=== PATIENT | female | born 1970 ===

== ENCOUNTER 2024-03-21 10:20 | Outpatient (AMB) | payer OTHER, SELFPAY ==
--- NOTE | 2024-03-21 10:23 | A.OFFVIS_ITS ---
Vital Signs 03/21/24 10:28 Height 5 ft 1 in Weight 159 lb 2.78 oz BMI 30.1 BP 134/80 Blood Pressure Location Rt brachial Position Sitting Pulse 67 Intake Visit Reasons: Diverticulitis, Malaise, Colonoscopy Intake Note: New patient in office today for colonoscopy screening. CC: Patient with hx of diverticulitis c/o gurgling noise from abdomen, a lot of gas, abdominal pain, and constipation. Last EGD/colonoscopy about 7 years ago in [place] per PT. Allergies amlodipine Allergy (Intermediate, Verified 03/21/24 15:18) Nausea atorvastatin Adverse Reaction (Intermediate, Verified 03/21/24 15:18) Myalgias rosuvastatin [From Crestor] Adverse Reaction (Intermediate, Verified 03/21/24 15:18) Myalgia HPI HPI Diverticulitis, Malaise, Colonoscopy: Details: 53-year-old female here for initial evaluation of ?diverticulitis, malaise, and colonoscopy. ? she is referred by [facility]. P.m. X JOSE MIGUEL Hypothyroid-Rayna's thyroiditis (pt denies Hashimotis) High cholesterol Hypertension Chronic idiopathic constipation Depression with anxiety/insomnia History of diverticulitis Arteriosclerotic disease Chronic sinusitis - resolved * SURGICAL HISTORY Colposcopy x 3 Myomectomy x 2 Adenoidectcomy cholecystectomy * ALLERGIES Amlodipine - nausea Crestor - mylagias Atorvastatin - myalgias * [email or web address]: none TODAY'S VISIT Her last scope was 7.5 years ago. She suffers CIC and has a lot of gas and bloating. It is uncomfortable. She has had diverticulitis twice, 7.5 and 2 years ago. She uses dulcolax but it is not predictable in its effect. She has used Linzess but this gave her diarrhea - but she does not know the dose. She drinks a lot of water and eats a lot of salads and exercises. We discussed utilizing lowest dose Linzess versus trying something different like Amitiza and because she does not like to take anything in the evening (that is when she takes her thyroid medication) she thinks she wants to start with the low-dose Linzess. She admits that she has had a lot of stress lately and this seems to worsen her bowel issues. There are no prior problems with anesthesia or sedation. She has JOSE MIGUEL and no cardiac problems except benign palpitations. No ID problems. Her father had CRC she has a brother with polyps. [facility] Surgical History H/O colonoscopy History of esophagogastroduodenoscopy (EGD) H/O adenoidectomy History of colposcopy History of cholecystectomy Family History Father Colon cancer Esophageal cancer Paternal Aunt Breast cancer Social History Alcohol intake: current Alcohol intake frequency: holidays/special occasions only Patient Tobacco Use Status: Never used Tobacco Review of Systems Const Denies fatigue, Denies fever(s), Denies night sweats, Denies poor appetite and Denies weight loss Eyes Details: glasses Reports requires corrective lenses ENT Reports Normal hearing present, Denies dental pain, Denies dysphagia, Denies hearing loss, Denies mouth pain, Denies odynophagia, Denies throat swelling, Denies tongue swelling and Reports other (Dentition adequate) Card Reports no additional complaints Resp Reports no additional complaints GI Details: Denies abdominal pain, Denies melena, Reports bloating, Denies hematochezia, Reports constipation, Denies GI cramping, Denies dysphagia, Denies excessive flatus, Denies early satiety, Denies heartburn, Denies diarrhea, Denies nausea, Denies odynophagia, Denies vomiting and Denies hematemesis Skin/Breast Denies pruritus, Denies lesions, Denies rash and Denies jaundice Neuro Reports Normal hearing present and Denies Abnormal speech present Endo Denies fatigue Aller/Immun Denies throat swelling and Denies tongue swelling Physical Exam Vital Signs: Last Vital Signs Pulse 67 03/21/24 10:28 BP 134/80 03/21/24 10:28 BMI result Body Mass Index 30.1 Const General: cooperative, no acute distress, well developed and well groomed Nutritional Appearance: well nourished and obese Orientation/consciousness: oriented to person, oriented to place and oriented to time Limitations: No language barrier HEENT Head: Yes normocephalic and Yes atraumatic Eyes General: appearance normal, both eyes and all related structures Pupils: Equal, round and reactive pupils present Neck Neck: Yes normal visual inspection and Yes no lymphadenopathy Thyroid: Thyroid normal Resp Effort & Inspection: normal respiratory effort and able to speak in complete sentences Auscultation: clear to auscultation bilaterally Cardio Rate: regular rate Rhythm: regular rhythm Heart sounds: Normal, physiologic split S2 sound present Peripheral pulses: radial pulses present and posterior tibial pulses present GI Inspection: No distended, No Abdominal panniculus present, Yes obesity and Yes striae Palpation (GI): Soft to palpation, nontender, no guarding, not rigid and No hepatosplenomegaly present Percussion: Yes normal to percussion Auscultation: normal bowel sounds Rectal Exam - Female: deferred Skin General skin exam: no rashes or lesions noted, turgor normal, skin not dry, no jaundice, No spider nevi and no striae Rashes: no rashes Nails: normal Neuro General: oriented to person, oriented to place and oriented to time Cranial nerves: Yes Equal, round and reactive pupils present and Yes Normal hearing present Speech: No Abnormal speech present Extrem General: Yes normal to inspection, No clubbing, No cyanosis and No edema Psych Appearance: grossly normal and well kempt Mental Status: mental status grossly normal Speech and movement: Normal speech and movement present Affect: normal affect Attitude: cooperative Thought process: Normal thought process present and not confabulating Thought content: Normal thought content present Insight: Fair insight present (Psych) Judgement: Fair judgement present (Psych) Assessment & Plan Assessment & Plan (1) Pre-op examination: Code(s): Z01.818 - Encounter for other preprocedural examination Category: Medical (2) Chronic idiopathic constipation: Code(s): K59.04 - Chronic idiopathic constipation Category: Medical (3) Family history of colon cancer in father: Comment: And polyps in her younger brother Code(s): Z80.0 - Family history of malignant neoplasm of digestive organs Category: Medical (4) Rayna's thyroiditis: Code(s): E06.3 - Autoimmune thyroiditis Category: Medical (5) JOSE MIGUEL (obstructive sleep apnea): Code(s): G47.33 - Obstructive sleep apnea (adult) (pediatric) Category: Medical Plan Her last scope was 7.5 years ago. She suffers CIC and has a lot of gas and bloating. It is uncomfortable. She has had diverticulitis twice, 7.5 and 2 years ago. She uses dulcolax but it is not predictable in its effect. She has used Linzess but this gave her diarrhea - but she does not know the dose. She drinks a lot of water and eats a lot of salads and exercises. We discussed utilizing lowest dose Linzess versus trying something different like Amitiza and because she does not like to take anything in the evening (that is when she takes her thyroid medication) she thinks she wants to start with the low-dose Linzess. She admits that she has had a lot of stress lately and this seems to worsen her bowel issues. There are no prior problems with anesthesia or sedation. She has JOSE MIGUEL and no cardiac problems except benign palpitations. No ID problems. Her father had CRC she has a brother with polyps. Orders: Orders Complete Blood Count Auto Diff Today E06.3 - Autoimmune thyroiditis, K59.04 - Chronic idiopathic constipation Colonoscopy - GI Use Only Today Z01.818 - Encounter for other preprocedural examination Comprehensive Met. Panel Today E06.3 - Autoimmune thyroiditis, K59.04 - Chronic idiopathic constipation TSH reflex Free T4 Today E06.3 - Autoimmune thyroiditis, K59.04 - Chronic idiopathic constipation Medications: New linaclotide (Linzess) 72 mcg PO QAM 30 caps 3RF K59.04 - Chronic idiopathic co nstipation peg 3350-electrolytes 236-22.74-6.74 -5.86 gram (Golytely) until fecal effluent is clear; do not exceed a total volume of 2,000 mL 240 mL PO Q10M 1 day 4,000 mL 0RF Z12.11 - Encounter for screening for malignant neoplasm of colon bisacodyl (Dulcolax (bisacodyl)) 10 mg (2 x 5 mg) PO BEDTIME 2 days 4 tabs 0RF Coding Level of Care Code New Pt Level 3 (84676) Diagnoses Pre-op examination Z01.818 Chronic idiopathic constipation K59.04 Family history of colon cancer in father Z80.0 Rayna's thyroiditis E06.3 JOSE MIGUEL (obstructive sleep apnea) G47.33
[2024-03-21 10:28] VITALS: BP 134/80; PULSE 67; BMI 30.1
== END 2024-03-21 11:05 | disposition home or self-care (01) ==
PROVIDERS: PCP Specialist; Visit Provider Nurse Practitioner
DX: Z01.818 Encounter for other preprocedural examination (principal); K59.04 Chronic idiopathic constipation; Z80.0 Family history of malignant neoplasm of digestive organs; E06.3 Autoimmune thyroiditis; G47.33 Obstructive sleep apnea (adult) (pediatric)
CPT/HCPCS: S0285

== ENCOUNTER → 2024-03-21 10:20 | Outpatient (BNVA) | payer SELFPAY | PROVIDERS: PCP Specialist; Visit Provider Nurse Practitioner ==

== ENCOUNTER 2024-05-09 07:43 | Outpatient (REF) | payer OTHER, SELFPAY ==
[2024-05-09 08:00] LABS: MANUAL DIFF FLAG NO
[2024-05-09 08:14] LABS: Basophils Absolute Auto 0.1 X10*3/uL (0.0-0.2); Basophils Percent Auto 0.9 % (0-2); Eosinophils Absolute Auto 0.2 X10*3/uL (0.0-0.4); Eosinophils Percent Auto 3.3 % (0-4); Hematocrit 41.6 % (37.0-47.0); Hemoglobin 14.2 g/dl (12.0-16.0); Imm Gran Abs Auto 0.03 X10*3/uL (0.00-0.03); Imm Gran Pct Auto 0.5 % (0.0-0.4); Lymphocytes Absolute Auto 2.1 X10*3/uL (1.2-4.9); Lymphocytes Percent Auto 31.1 % (20-40); Mean Corpuscular HGB Conc 34.1 g/dl (31.0-35.0); Mean Corpuscular Hemoglobin 29.1 pg (27.0-33.0); Mean Corpuscular Volume 85.2 fL (80.0-98.0); Mean Platelet Volume 9.9 fL (9.4-12.3); Monocytes Absolute Auto 0.5 X10*3/uL (0.1-1.2); Neutrophils Absolute Auto 3.8 x10*3/uL (2.0-8.3); Neutrophils Percent Auto 57.2 % (45-73); Platelet Count 260 X10*3/uL (160-400); Red Blood Count 4.88 X10*6/uL (4.20-5.50); Red Cell Distribution Width 13.8 % (11.0-16.0); White Blood Count 6.6 X10*3/uL (4.8-10.8)
[2024-05-09 08:59] LABS: Alanine Aminotransferase 12 U/L (0-31); Albumin Level 4.4 g/dL (3.5-5.0); Alkaline Phosphatase 59 U/L (39-117); Anion Gap 16 (12-20); Aspartate Amino Transferase 14 U/L (5-31); Bilirubin Total 0.4 mg/dL (0.0-1.0); Blood Urea Nitrogen 9 mg/dL (9-16); Calcium 10.1 mg/dL (8.4-10.2); Carbon Dioxide 23 mmol/L (22-29); Chloride 105 mmol/L (96-108); Estimated Glomerular Filt Rate > 60; Glucose Random 97 mg/dL (60-115); Potassium 3.9 mmol/L (3.3-5.1); Sodium 140 mmol/L (135-145); Total Protein 7.5 g/dL (6.5-8.0)
[2024-05-09 09:01] LABS: TSH reflex Free T4 1.79 uIU/mL (0.32-4.0)
== END 2024-05-09 07:44 | disposition home or self-care (01) ==
LOC: HO.LAB 07:43
PROVIDERS: PCP Physician Assistant Medical; Visit Provider Nurse Practitioner
DX: K59.04 Chronic idiopathic constipation (principal); E06.3 Autoimmune thyroiditis
CPT/HCPCS: 36415; 80053; 84443; 85025

== ENCOUNTER 2024-05-12 08:50 | Outpatient (AMB) | payer OTHER, SELFPAY ==
--- NOTE | 2024-05-12 08:58 | A.OFFVIS_ITS ---
Vital Signs 05/12/24 09:15 Height 5 ft 1 in Weight 159 lb 9.835 oz BMI 30.2 Blood Pressure Location Rt brachial Position Sitting Intake Visit Reasons: F/u titrate Linzess Intake Note: Patient in office today in follow up of abdominal pain and constipation. CC:Patient reports that she is taking the Linzess but continues having hard stools and then after taking the Linzess liquid comes out like bile . She continues having constipation, abdominal pain, abdominal bloating, and gas. 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[employer] Operator Required: No Accompanied by: Self / Same As Patient Allergies amlodipine Allergy (Intermediate, Verified 05/12/24 09:21) Nausea atorvastatin Adverse Reaction (Intermediate, Verified 05/12/24 09:21) Myalgias rosuvastatin [From Crestor] Adverse Reaction (Intermediate, Verified 05/12/24 09:21) Myalgia HPI HPI F/u titrate Linzess: Details: Assessment & Plan (1) Pre-op examination: Code(s): Z01.818 - Encounter for other preprocedural examination Category: Medical (2) Chronic idiopathic constipation: Code(s): K59.04 - Chronic idiopathic constipation Category: Medical (3) Family history of colon cancer in father: Comment: And polyps in her younger brother Code(s): Z80.0 - Family history of malignant neoplasm of digestive organs Category: Medical (4) Rayna's thyroiditis: Code(s): E06.3 - Autoimmune thyroiditis Category: Medical (5) JOSE MIGUEL (obstructive sleep apnea): Code(s): G47.33 - Obstructive sleep apnea (adult) (pediatric) Category: Medical Plan Her last scope was 7.5 years ago. She suffers CIC and has a lot of gas and bloating. It is uncomfortable. She has had diverticulitis twice, 7.5 and 2 years ago. She uses dulcolax but it is not predictable in its effect. She has used Linzess but this gave her diarrhea - but she does not know the dose. She drinks a lot of water and eats a lot of salads and exercises. We discussed utilizing lowest dose Linzess versus trying something different like Amitiza and because she does not like to take anything in the evening (that is when she takes her thyroid medication) she thinks she wants to start with the low-dose Linzess. She admits that she has had a lot of stress lately and this seems to worsen her bowel issues. There are no prior problems with anesthesia or sedation. She has JOSE MIGUEL and no cardiac problems except benign palpitations. No ID problems. Her father had CRC she has a brother with polyps. Orders: Orders Complete Blood Count Auto Diff Today E06.3 - Autoimmune thyroiditis, K59.04 - Chronic idiopathic constipation Colonoscopy - GI Use Only Today Z01.818 - Encounter for other preprocedural examination Comprehensive Met. Panel Today E06.3 - Autoimmune thyroiditis, K59.04 - Chronic idiopathic constipation TSH reflex Free T4 Today E06.3 - Autoimmune thyroiditis, K59.04 - Chronic idiopathic constipation Medications: New linaclotide (Linzess) 72 mcg PO QAM 30 caps 3RF K59.04 - Chronic idiopathic constipation peg 3350-electrolytes 236-22.74-6.74 -5.86 gram (Golytely) until fecal effluent is clear; do not exceed a total volume of 2,000 mL 240 mL PO Q10M 1 day 4,000 mL 0RF Z12.11 - Encounter for screening for malignant neoplasm of colon bisacodyl (Dulcolax (bisacodyl)) 10 mg (2 x 5 mg) PO BEDTIME 2 days 4 tabs 0RF LABS: Laboratory Tests 05/09/24 07:58 WBC 6.6 Hgb 14.2 Hct 41.6 Plt Count 260 Estimated GFR > 60 Total Bilirubin 0.4 AST 14 ALT 12 Alkaline Phosphatase 59 TSH 1.79 COLONOSCOPY Scheduled for 09/07/2024 BIOPSY TODAY'S VISIT AT Linzess 72mcg she still will not move her bowels but every 4 days, the stool is very hard and she has to strain. She has a lot of borborygmus. Will increase to 145mcg and continue to titrate. She works 2 jobs and many 12 hour shifts so we will continue carefully. ROV 4 weeks. PFSH Medical History Pre-op examination Surgical History H/O myomectomy H/O colonoscopy History of esophagogastroduodenoscopy (EGD) H/O adenoidectomy History of colposcopy History of cholecystectomy Family History Father Colon cancer Esophageal cancer Paternal Aunt Breast cancer Social History Alcohol intake: current Alcohol intake frequency: holidays/special occasions only Patient Tobacco Use Status: Never used Tobacco Review of Systems Const Denies fatigue, Denies fever(s), Denies night sweats, Denies poor appetite and Denies weight loss Eyes Details: glasses Reports requires corrective lenses ENT Reports Normal hearing present, Denies dental pain, Denies dysphagia, Denies hearing loss, Denies mouth pain, Denies odynophagia, Denies throat swelling, Denies tongue swelling and Reports other (Dentition adequate) Card Reports no additional complaints Resp Reports no additional complaints GI Details: Denies abdominal pain, Denies melena, Denies bloating, Denies hematochezia, Reports constipation, Denies GI cramping, Denies dysphagia, Denies excessive flatus, Denies early satiety, Denies heartburn, Denies diarrhea, Denies nausea, Denies odynophagia, Denies vomiting and Denies hematemesis Skin/Breast Denies pruritus, Denies lesions, Denies rash and Denies jaundice Neuro Reports Normal hearing present and Denies Abnormal speech present Endo Denies fatigue Aller/Immun Denies throat swelling and Denies tongue swelling Physical Exam Vital Signs: BMI result Body Mass Index 30.2 Const General: cooperative, no acute distress, well developed and well groomed Nutritional Appearance: well nourished and obese Orientation/consciousness: oriented to person, oriented to place and oriented to time Limitations: No language barrier HEENT Head: Yes normocephalic and Yes atraumatic Eyes General: appearance normal, both eyes and all related structures Pupils: Equal, round and reactive pupils present Neck Neck: Yes normal visual inspection and Yes no lymphadenopathy Thyroid: Thyroid normal Resp Effort & Inspection: normal respiratory effort and able to speak in complete sentences Auscultation: clear to auscultation bilaterally Cardio Rate: regular rate Rhythm: regular rhythm Heart sounds: Normal, physiologic split S2 sound present Peripheral pulses: radial pulses present and posterior tibial pulses present GI Inspection: No distended, No Abdominal panniculus present and Yes obesity Palpation (GI): Soft to palpation, nontender, no guarding, not rigid and No h epatosplenomegaly present Percussion: Yes normal to percussion Auscultation: normal bowel sounds Rectal Exam - Female: deferred Skin General skin exam: no rashes or lesions noted, turgor normal, skin not dry, no jaundice, No spider nevi and no striae Rashes: no rashes Nails: normal Neuro General: oriented to person, oriented to place and oriented to time Cranial nerves: Yes Equal, round and reactive pupils present and Yes Normal hearing present Speech: No Abnormal speech present Extrem General: Yes normal to inspection, No clubbing, No cyanosis and No edema Psych Appearance: grossly normal and well kempt Mental Status: mental status grossly normal Speech and movement: Normal speech and movement present Affect: normal affect Attitude: cooperative Thought process: Normal thought process present and not confabulating Thought content: Normal thought content present Insight: Fair insight present (Psych) Judgement: Fair judgement present (Psych) Assessment & Plan Assessment & Plan (1) Chronic idiopathic constipation: Code(s): K59.04 - Chronic idiopathic constipation Category: Medical (2) Family history of colon cancer in father: Comment: And polyps in her younger brother Code(s): Z80.0 - Family history of malignant neoplasm of digestive organs Category: Medical Plan AT Linzess 72mcg she still will not move her bowels but every 4 days, the stool is very hard and she has to strain. She has a lot of borborygmus. Will increase to 145mcg and continue to titrate. She works 2 jobs and many 12 hour shifts so we will continue carefully. ROV 4 weeks COLONOSCOPY Scheduled for 09/07/2024 BIOPSY Medications: New linaclotide (Linzess) Take first thing in the morning with a full glass of water. 145 mcg PO QAM 30 caps 6RF K58.1 - Irritable bowel syndrome with constipation Discontinued linaclotide Discontinued Reason: Doctor's Order 72 mcg PO QAM 30 caps 3RF K59.04 - Chronic idiopathic constipation Coding Level of Care Code Est Pt Level 3 (13751) Diagnoses Chronic idiopathic constipation K59.04 Family history of colon cancer in father Z80.0
[2024-05-12 09:15] VITALS: BMI 30.2
== END 2024-05-12 09:35 | disposition home or self-care (01) ==
PROVIDERS: PCP Specialist; Visit Provider Nurse Practitioner
DX: K59.04 Chronic idiopathic constipation (principal); Z80.0 Family history of malignant neoplasm of digestive organs
CPT/HCPCS: 99213

== ENCOUNTER → 2024-05-12 08:50 | Outpatient (BNVA) | payer OTHER, SELFPAY | PROVIDERS: PCP Specialist; Visit Provider Nurse Practitioner ==

== ENCOUNTER 2024-08-09 10:29 | Outpatient (AMB) | payer OTHER, SELFPAY ==
[2024-08-09 10:32] VITALS: BP 137/69; PULSE 59; BMI 29.4
--- NOTE | 2024-08-09 10:32 | A.OFFVIS_ITS ---
Vital Signs 08/09/24 10:32 Height 5 ft 1 in Weight 155 lb 10.342 oz BMI 29.4 BP 137/69 Blood Pressure Location Lt brachial Position Sitting Pulse 59 Intake Visit Reasons: 1 mos FUV Intake Note: Patient in office today in follow up of CIC. CC: Patient reports doing much much better and having regular BMs with Linzess. Denies having other GI symptoms today. Pocket Stitcher Required: No Accompanied by: Self / Same As Patient Allergies amlodipine Allergy (Intermediate, Verified 08/09/24 10:45) Nausea atorvastatin Adverse Reaction (Intermediate, Verified 08/09/24 10:45) Myalgias rosuvastatin [From Crestor] Adverse Reaction (Intermediate, Verified 08/09/24 10:45) Myalgia HPI HPI 1 mos FUV: Details: AT Linzess 72mcg she still will not move her bowels but every 4 days, the stool is very hard adn she has to strain. She has a lto of borborygmus. Will increase to 145mcg and continue to titrate. SHe works 2 jobs and many 12 hour shifts so we will continue carefully. ROV 4 weeks. Assessment & Plan (1) Chronic idiopathic constipation: Code(s): K59.04 - Chronic idiopathic constipation Category: Medical (2) Family history of colon cancer in father: Comment: And polyps in her younger brother Code(s): Z80.0 - Family history of malignant neoplasm of digestive organs Category: Medical Medications: New linaclotide (Linzess) Take first thing in the morning with a full glass of water. 145 mcg PO QAM 30 caps 6RF K58.1 - Irritable bowel syndrome with constipation Discontinued linaclotide (Linzess) Discontinued Reason: Doctor's Order 72 mcg PO QAM 30 caps 3RF K59.04 - Chronic idiopathic constipation COLONOSCOPY 09/07/2024 BIOPSY TODAY'S VISIT She is doing well on her Linzess 145mcg and this has resolved her LLQ cramping/pain and the bloating. Its not perfect, but she is greatly improved and is happy with her GI procedure. She has an appt with me in September so we will keep this as a follow up. [facility] Medical History Pre-op examination Surgical History H/O myomectomy H/O colonoscopy History of esophagogastroduodenoscopy (EGD) H/O adenoidectomy History of colposcopy History of cholecystectomy Family History Father Colon cancer Esophageal cancer Paternal Aunt Breast cancer Social History Alcohol intake: current Alcohol intake frequency: holidays/special occasions only Patient Tobacco Use Status: Never used Tobacco Review of Systems Const Denies fatigue, Denies fever(s), Denies night sweats, Denies poor appetite and Denies weight loss Eyes Details: glasses Reports requires corrective lenses ENT Reports Normal hearing present, Denies dental pain, Denies dysphagia, Denies hearing loss, Denies mouth pain, Denies odynophagia, Denies throat swelling, Denies tongue swelling and Reports other (Dentition adequate) Card Reports no additional complaints Resp Reports no additional complaints GI Details: Denies abdominal pain, Denies melena, Reports bloating, Denies hematochezia, Reports constipation, Reports GI cramping, Denies dysphagia, Denies excessive flatus, Denies early satiety, Denies heartburn, Denies diarrhea, Denies nausea, Denies odynophagia, Denies vomiting and Denies hematemesis Skin/Breast Denies pruritus, Denies lesions, Denies rash and Denies jaundice Neuro Reports Normal hearing present and Denies Abnormal speech present Endo Denies fatigue Aller/Immun Denies throat swelling and Denies tongue swelling Physical Exam Vital Signs: Last Vital Signs Pulse 59 08/09/24 10:32 BP 137/69 08/09/24 10:32 BMI result Body Mass Index 29.4 Const General: cooperative, no acute distress, well developed and well groomed Nutritional Appearance: well nourished and overweight Orientation/consciousness: oriented to person, oriented to place and oriented to time Limitations: No language barrier HEENT Head: Yes normocephalic and Yes atraumatic Eyes General: appearance normal, both eyes and all related structures Pupils: Equal, round and reactive pupils present Neck Neck: Yes normal visual inspection and Yes no lymphadenopathy Thyroid: Thyroid normal Resp Effort & Inspection: normal respiratory effort and able to speak in complete sentences Auscultation: clear to auscultation bilaterally Cardio Rate: regular rate Rhythm: regular rhythm Heart sounds: Normal, physiologic split S2 sound present Peripheral pulses: radial pulses present and posterior tibial pulses present GI Inspection: No distended, No Abdominal panniculus present and Yes obesity Palpation (GI): Soft to palpation, nontender, no guarding, not rigid and No hepatosplenomegaly present Percussion: Yes normal to percussion Auscultation: normal bowel sounds Rectal Exam - Female: deferred Skin General skin exam: no rashes or lesions noted, turgor normal, skin not dry, no jaundice, No spider nevi and no striae Rashes: no rashes Nails: normal Neuro General: oriented to person, oriented to place and oriented to time Cranial nerves: Yes Equal, round and reactive pupils present and Yes Normal hearing present Speech: No Abnormal speech present Extrem General: Yes normal to inspection, No clubbing, No cyanosis and No edema Psych Appearance: grossly normal and well kempt Mental Status: mental status grossly normal Speech and movement: Normal speech and movement present Affect: normal affect Attitude: cooperative Thought process: Normal thought process present and not confabulating Thought content: Normal thought content present Insight: Fair insight present (Psych) Judgement: Fair judgement present (Psych) Assessment & Plan Assessment & Plan (1) Chronic idiopathic constipation: Code(s): K59.04 - Chronic idiopathic constipation Category: Medical (2) Family history of colon cancer in father: Comment: And polyps in her younger brother Code(s): Z80.0 - Family history of malignant neoplasm of digestive organs Category: Medical Plan She is doing well on her Linzess 145mcg and this has resolved her LLQ cramping/pain and the bloating. Its not perfect, but she is greatly improved and is happy with her GI procedure. She has an appt with me in September so we will keep this as a follow up. COLONOSCOPY 09/07/2024 BIOPSY Medications: Refilled linaclotide (Linzess) Take first thing in the morning with a full glass of water. 145 mcg PO QAM 30 caps 6RF K58.1 - Irritable bowel syndrome with constipation Coding Level of Care Code Est Pt Level 3 (45850) Diagnoses Chronic idiopathic constipation K59.04 Family history of colon cancer in father Z80.0
== END 2024-08-09 10:56 | disposition home or self-care (01) ==
PROVIDERS: PCP Specialist; Visit Provider Nurse Practitioner
DX: K59.04 Chronic idiopathic constipation (principal); Z80.0 Family history of malignant neoplasm of digestive organs
CPT/HCPCS: 99213

== ENCOUNTER → 2024-08-09 10:29 | Outpatient (BNVA) | payer OTHER, SELFPAY | PROVIDERS: PCP Specialist; Visit Provider Nurse Practitioner ==

== ENCOUNTER 2024-09-07 06:22 | Day surgery (SDC) | payer OTHER, SELFPAY ==
[2024-09-05 14:03] VITALS: BMI 30.6
--- NOTE | 2024-09-06 10:06 | P.CONAN_ITS ---
Documented by User: Heather Olsen NP 09/06/24 10:08 HPI - Anesthesia Eval Consult details Narrative: 54yo F for Colonoscopy PMFSH Active Problems Active Problems: All Active Problems Family history of colon cancer in father (Acute) Increased prolactin level (Acute) Chronic sinusitis (Acute) Atherosclerotic cardiovascular disease (Acute) History of diverticulitis (Acute) Insomnia (Acute) Depression with anxiety (Acute) Chronic idiopathic constipation (Acute) Hypertension (Acute) High cholesterol (Acute) Rayna's thyroiditis (Acute) Hypothyroid (Acute) JOSE MIGUEL (obstructive sleep apnea) (Acute) Past Medical History Medical History Chronic sinusitis Depression with anxiety Rayna's thyroiditis Hypothyroid High cholesterol Atherosclerotic cardiovascular disease Hypertension JOSE MIGUEL (obstructive sleep apnea) Pre-op examination Family History Family History Father Colon cancer Esophageal cancer Paternal Aunt Breast cancer Surgical History Surgical History H/O myomectomy H/O colonoscopy History of esophagogastroduodenoscopy (EGD) H/O adenoidectomy History of colposcopy History of cholecystectomy Social History Social History Are you a primary career development manager to a significant other at home: No Do you presently have visiting nurse or other home services: No Alcohol intake: current Alcohol intake frequency: holidays/special occasions only Patient Tobacco Use Status: Never used Tobacco Have you been hit, kicked, punched, or otherwise hurt by someone within the past year? If so, by whom?: No Are you DNR?: No Advance Directives: No Advance Directives Information Provided: Yes Recently lost weight without trying: No Nutrition Risks: No Nutritional Risk FDLMP: 3 weeks ago Meds Allergies Allergy/AdvReac Type Severity Reaction Status Date / Time amlodipine Allergy Intermediate Nausea Verified 09/07/24 06:46 atorvastatin AdvReac Intermediate Myalgias Verified 09/07/24 06:46 rosuvastatin [From Crestor] AdvReac Intermediate Myalgia Verified 09/07/24 06:46 Home Medications ?Medication ?Instructions ?Recorded ?Confirmed ?Last Taken ?Type cabergoline 0.5 mg tablet 0.5 mg PO .every week 03/21/24 09/07/24 09/04/24 History ezetimibe 10 mg tablet 10 mg PO DAILY 03/21/24 09/07/24 Unknown History levothyroxine 75 mcg tablet 75 mcg PO DAILY 03/21/24 09/07/24 Unknown History lorazepam 0.5 mg tablet 0.5 mg PO DAILY 03/21/24 09/07/24 Unknown History zolpidem 12.5 mg tablet,extended 12.5 mg PO BEDTIME PRN Insomnia 03/21/24 09/07/24 Unknown History release,multiphase elderberry fruit 350 mg capsule 350 mg PO DAILY 08/09/24 09/07/24 Unknown History liothyronine 5 mcg tablet 2.5 mcg PO DAILY 08/09/24 09/07/24 Unknown History magnesium 150 mg PO DAILY 08/09/24 09/07/24 Unknown History nebivolol 10 mg tablet 10 mg PO DAILY 08/09/24 09/07/24 Unknown History evolocumab 140 mg/mL subcutaneous mg subcut 09/07/24 09/07/24 08/24/24 History pen injector (Mounika Borjas) Exam Height,Weight and Vital Signs: Height 5 ft 1 in Weight 73.482 kg Assessment and Plan Assessment Anesthesia Assessment: Chart Reviewed Documented by User: Edwardo Lucas MD 09/07/24 07:50 [facility] Past Medical History Medical History Chronic sinusitis Depression with anxiety Rayna's thyroiditis Hypothyroid High cholesterol Atherosclerotic cardiovascular disease Hypertension JOSE MIGUEL (obstructive sleep apnea) Pre-op examination Family History Family History Father Colon cancer Esophageal cancer Paternal Aunt Breast cancer Family history of problems with anesthesia: No Surgical History Surgical History H/O myomectomy H/O colonoscopy History of esophagogastroduodenoscopy (EGD) H/O adenoidectomy History of colposcopy History of cholecystectomy History of Problems with Anesthesia: No Social History Social History Are you a primary career development manager to a significant other at home: No Do you presently have visiting nurse or other home services: No Alcohol intake: current Alcohol intake frequency: holidays/special occasions only Patient Tobacco Use Status: Never used Tobacco Have you been hit, kicked, punched, or otherwise hurt by someone within the past year? If so, by whom?: No Are you DNR?: No Advance Directives: No Advance Directives Information Provided: Yes Recently lost weight without trying: No Nutrition Risks: No Nutritional Risk FDLMP: 3 weeks ago Meds Allergies Allergy/AdvReac Type Severity Reaction Status Date / Time amlodipine Allergy Intermediate Nausea Verified 09/07/24 06:46 atorvastatin AdvReac Intermediate Myalgias Verified 09/07/24 06:46 rosuvastatin [From Crestor] AdvReac Intermediate Myalgia Verified 09/07/24 06:46 Home Medications ?Medication ?Instructions ?Recorded ?Confirmed ?Last Taken ?Type cabergoline 0.5 mg tablet 0.5 mg PO .every week 03/21/24 09/07/24 09/04/24 History ezetimibe 10 mg tablet 10 mg PO DAILY 03/21/24 09/07/24 Unknown History levothyroxine 75 mcg tablet 75 mcg PO DAILY 03/21/24 09/07/24 Unknown History lorazepam 0.5 mg tablet 0.5 mg PO DAILY 03/21/24 09/07/24 Unknown History zolpidem 12.5 mg tablet,extended 12.5 mg PO BEDTIME PRN Insomnia 03/21/24 09/07/24 Unknown History release,multiphase elderberry fruit 350 mg capsule 350 mg PO DAILY 08/09/24 09/07/24 Unknown History liothyronine 5 mcg tablet 2.5 mcg PO DAILY 08/09/24 09/07/24 Unknown History magnesium 150 mg PO DAILY 08/09/24 09/07/24 Unknown History nebivolol 10 mg tablet 10 mg PO DAILY 08/09/24 09/07/24 Unknown History evolocumab 140 mg/mL subcutaneous mg subcut 09/07/24 09/07/24 08/24/24 History pen injector (Mounika Borjas) Exam Airway Mallampati Class: I TM Dist: >3cm Neck ROM: Full Loose/Missing/Broken Teeth: No Heart: ok Lungs: ok Assessment and Plan Assessment Anesthesia Assessment: Anesthesia Plan Discussed Final Anesthetic Review Family History of Problems with Anesthesia: No History of Problems with Anesthesia: No NPO: Yes ASA Class: III Final Preanesthetic Review: No Changes in Pt Med Stat, Meds/Allgs Chart Reviewed, Consent Obtained/Reviewed and Anes Risks/Benef Reviewed Patient Risk: Intermediate Procedure Risk: Low Anesthetic Plan Anesthetic Plan: MAC: and Agree w/ Assess. and Plan Disposition: Standard PACU
--- NOTE | 2024-09-07 06:41 | P.HPSUR_ITS ---
Pre-Procedural Eval Section A - 24 Hr Update-Section A only Date of Service: 09/07/24 Section B - Complete if H&P > 30 days Chief Complaint: screening Relevant Family History (Specify if Yes): Yes Relevant Social History: None Present Medications: see Short Stay Collaborative assessment Medical History: Significant History (Chronic sinusitis Depression with anxiety Rayna's thyroiditis Hypothyroid High cholesterol Atherosclerotic cardiovascular disease Hypertension JOSE MIGUEL (obstructive sleep apnea)) History of Previous Operations: Relevant previous surgery/procedure and date(s) (H/O myomectomy H/O colonoscopy History of esophagogastroduodenoscopy (EGD) H/O adenoidectomy History of colposcopy History of cholecystectomy) Allergies: Allergies Allergy/AdvReac Type Severity Reaction Status Date / Time amlodipine Allergy Intermediate Nausea Verified 08/09/24 10:45 atorvastatin AdvReac Intermediate Myalgias Verified 08/09/24 10:45 rosuvastatin [From Crestor] AdvReac Intermediate Myalgia Verified 08/09/24 10:45 Review of Systems Sugical H&P ROS: Negative: Constitution, Cardiovascular, Respiratory, Neurological, Psychiatric, Hem-Onc, Allergic/Immunologic, Gastrointestinal, Genitourinary, Musculoskeletal, Integumentary, Endocrine and Eyes/Ears/Nos e/Throat Exam Surgical H&P Exam: Normal: HEENT, Normal: Heart, Normal: Lungs, Normal: Extremities, Normal: Abdomen, Normal: Skin and Normal: Neurological Plan Diagnosis/Plan: Unchanged I have reviewed the history and physical and performed a pertinent physical examination on my patient. No changes have occurred unless specified. Time Spent With Patient Time: Total time managing care of this patient today ____ minutes.
--- NOTE | 2024-09-07 06:44 | PC.NURSE ---
patient reports that she has had two small periods this year, urine hcg completed since it has not been one full year without a menstrual cycle.
[2024-09-07 06:45] VITALS: BMI 29.7
[2024-09-07] MEDS: Lactated Ringers 1,000 ML 100 ML IVCONT (06:48)
[2024-09-07 06:57] VITALS: BP 123/63; PULSE 69; RESP 18; TEMP 36.6; O2SAT 99
[2024-09-07 07:11] LABS: UPreg QC Valid YES; Urine Pregnancy NEGATIVE (NEGATIVE)
--- NOTE | 2024-09-07 08:02 | P.OPN-COLO_ITS ---
Colonoscopy Operative Note Operative Note Date of Service: 09/07/24 Narrative: Operative Information Procedure Description: Colonoscopy Indication: screening, FH of CRC Anesthesia: MAC COLONOSCOPY Instrument: Olympus variable stiffness pediatric scope 190L Colonoscopy Monitoring: Vital signs and clinical assessment, continuous EKG monitoring, Pulse oximetry, Carbon Dioxide monitoring and blood pressure monitoring were done throughout the procedure. Colon withdrawal time was 11 minutes. Procedure: The patient was placed in the left lateral decubitis position and pre-procedure medications were administered. After a digital rectal examination of the ano-rectum, the video colonoscope was inserted into the rectum and advanced through the colon to the cecum/TI. The colonoscope was slowly withdrawn in a retrograde panoramic fashion and the colon mucosa was carefully examined including a retroflexed view of the rectum. Findings and interventions are described below. Procedure Difficulty: moderate Findings: Terminal Ileum-normal Cecum:normal Ascending Colon: moderate diverticulosis Transverse Colon -normal Descending Colon: moderate diverticulosis Sigmoid Colon: severe diverticulosis Rectum: Retroflexion with small internal hemorrhoids seen, grade I Anorectum - normal Intervention: none Colon preparation: [place] Bowel Preparation Scale Right colon; 2 Transverse colon: 2 Left colon; 2 (0 = Unprepared colon segment with mucosa not seen due to solid stool that cannot be cleared. 1 = Portion of mucosa of the colon segment seen, but other areas of the colon segment not well seen due to staining, residual stool and/or opaque liquid. 2 = Minor amount of residual staining, small fragments of stool and/or opaque liquid, but mucosa of colon segment seen well. 3 = Entire mucosa of colon segment seen well with no residual staining, small fragments of stool or opaque liquid) Impression and Post Procedure Diagnosis: diverticulosis internal hemorrhoids Plan: High fiber diet leaflet Avoid straining at stool, epsom salts and sitz bath, anusol supps or cream Repeat Colonoscopy in 5 years due to FH or earlier if clinically indicated Above findings were reviewed with the patient and relevant handouts were provided if indicated.
[2024-09-07 08:10] VITALS: BP 96/47; PULSE 62; RESP 18; TEMP 36.4; O2SAT 96
[2024-09-07 08:25] VITALS: BP 129/69; PULSE 60; RESP 16; TEMP 36.6; O2SAT 100
== END 2024-09-07 09:05 | disposition home or self-care (01) ==
PROVIDERS: Anesthesiology; PCP Physician Assistant Medical; Visit Provider Internal Medicine Gastroenterology
PROC: 0DJD8ZZ Inspection of Lower Intestinal Tract, Via Natural or Artificial Opening Endoscopic (ICD-10-PCS; CPT 45378; principal; 2024-09-07 07:30)
DX: Z12.11 Encounter for screening for malignant neoplasm of colon (principal); Z80.0 Family history of malignant neoplasm of digestive organs; K57.30 Diverticulosis of large intestine without perforation or abscess without bleeding; K64.0 First degree hemorrhoids; J32.9 Chronic sinusitis, unspecified; E06.3 Autoimmune thyroiditis; F41.8 Other specified anxiety disorders; I10 Essential (primary) hypertension; E78.00 Pure hypercholesterolemia, unspecified; I25.10 Atherosclerotic heart disease of native coronary artery without angina pectoris; G47.33 Obstructive sleep apnea (adult) (pediatric); Z79.899 Other long term (current) drug therapy; Z88.8 Allergy status to other drugs, medicaments and biological substances; Z98.890 Other specified postprocedural states
CPT/HCPCS: 45378; 81025; J2003; J2704

== ENCOUNTER → 2024-09-07 06:22 | Outpatient (BNV) | payer OTHER, SELFPAY | PROVIDERS: PCP Physician Assistant Medical; Visit Provider Internal Medicine Gastroenterology | DX: Z12.11 Encounter for screening for malignant neoplasm of colon (principal); Z80.0 Family history of malignant neoplasm of digestive organs; K57.90 Diverticulosis of intestine, part unspecified, without perforation or abscess without bleeding; K64.0 First degree hemorrhoids | CPT/HCPCS: 45378 ==